=== PATIENT | male | born 1995 | race Caucasian/White ===

== ENCOUNTER 2016-06-08 18:44 | Emergency (ER) | payer OTHER ==
[~2016-06-08] VITALS: Ht 167.6 cm; Wt 70.6 kg
[2016-06-08 18:45] VITALS: BP 151/72
[2016-06-08] MEDS ORDERED: LIDOCAINE 1%, 20ML SQ ONE (19:00)
[2016-06-08] MEDS ORDERED: LIDOCAINE 1%, 20ML ONE (19:17)
[2016-06-08] MEDS ORDERED: BUPIVACAINE 0.25% ONE (19:18)
== END 2016-06-08 20:10 | disposition home or self-care (01) ==
LOC: ED 20:04
DX: S61.210A Laceration without foreign body of right index finger without damage to nail, initial encounter (principal); F17.210 Nicotine dependence, cigarettes, uncomplicated; W25.XXXA Contact with sharp glass, initial encounter; Y93.89 Activity, other specified; Y92.009 Unspecified place in unspecified non-institutional (private) residence as the place of occurrence of the external cause; Y99.8 Other external cause status
CPT/HCPCS: 12001

== ENCOUNTER 2020-05-04 10:09 | Emergency (ER) | payer SELFPAY ==
[~2020-05-04] VITALS: Ht 165.1 cm; Wt 77.7 kg
--- NOTE | 2020-05-04 10:37 | NUR ---
First contact with pt. Pt reports yesterday at 1500 he cut his L 2nd finger on a knife while working on a car. Pt reports today he is having chills, denies other sx. Pt reports feeling anxious, denies other sx, no sick contacts. Pt speaking in full sentences, resp even and unlabored. Pt able to position self for comfort in bed, provided warm blankets and verbal reassurance. Pt appears to calm visibly after this and stop shaking.
[2020-05-04] MEDS ORDERED: LIDOCAINE-MPF 1%, 5ML ONE (10:45)
[2020-05-04] MEDS ORDERED: LIDOCAINE-MPF 1%, 5ML INFIL ONE (11:00)
[2020-05-04] MEDS ORDERED: LORazepam 1MG TABLET PO ONE (11:00)
[2020-05-04] MEDS ORDERED: ALBUTEROL/IPRATROPIUM 2.5MG/0.5MG, 3 ML NPPB SCH (11:00)
[2020-05-04] MEDS ORDERED: LORazepam 1MG TABLET ONE (11:17)
--- NOTE | 2020-05-04 11:27 | NUR ---
Pt medicated for anxiety per MAY. Pt reports no difficulty breathing, no resp distress noted, no wheezing. EMT at bedside to perform ordered wound care.
[2020-05-04 12:08] VITALS: BP 130/78
== END 2020-05-04 12:09 | disposition home or self-care (01) ==
LOC: ED 10:43
DX: S61.211A Laceration without foreign body of left index finger without damage to nail, initial encounter (principal); F41.1 Generalized anxiety disorder; F17.200 Nicotine dependence, unspecified, uncomplicated; J45.909 Unspecified asthma, uncomplicated; W26.0XXA Contact with knife, initial encounter; Y93.89 Activity, other specified; Y92.89 Other specified places as the place of occurrence of the external cause; Y99.8 Other external cause status
CPT/HCPCS: 12001; 99283